=== PATIENT | male | born 1985 | race American Indian/Alaskan Native ===

== ENCOUNTER 2016-06-10 02:27 | Emergency (ER) | payer SELFPAY | END 2016-06-10 03:30 | disposition left against medical advice (07) | LOC: ED 02:27 | DX: R00.0 Tachycardia, unspecified (principal); Z53.21 Procedure and treatment not carried out due to patient leaving prior to being seen by health care provider ==

== ENCOUNTER 2016-06-16 04:13 | Emergency (ER) | payer SELFPAY ==
[2016-06-16 05:08] LABS: Basophils % (Auto) 0.6 % (0.0-1.8); Eosinophils % (Auto) 0.2 % (0.0-4.3); Hematocrit 52.7 % (35.5-45.6); Hemoglobin 17.7 gm/dl (11.8-15.2); Mean Corpuscular HGB Conc 34 % (32-34); Mean Corpuscular Hemoglobin 32 pg (28-32); Mean Corpuscular Volume 94 fl (84-94); Platelet Count 239 K/mm3 (140-440); Red Cell Distribution Width 16.1 % (13.2-15.2)
[2016-06-16 05:19] LABS: BUN/Creatinine Ratio 15.71; Blood Urea Nitrogen 11 mg/dL (9-20); Calcium 9.2 mg/dL (8.4-10.2); Carbon Dioxide 23 mmol/L (22-30); Chloride 89.8 mmol/L (98-107); Glucose 55 mg/dL (75-100); Potassium 4.2 mmol/L (3.6-5.0); Sodium 136 mmol/L (137-145)
[2016-06-16 05:35] LABS: Anion Gap 27 mmol/L
[2016-06-16 15:38] LABS: Urine Drugs of Abuse Note Disclamer
[2016-06-16] MEDS ORDERED: NACL 0.9% 1000 ML IV ONE (16:08)
--- NOTE | 2016-06-16 16:14 | Emergency Department Report ---
HPI - General Chief Complaint: Arrhythmia/Palpitations Time Seen by Provider: 06/16/16 16:06 - HPI HPI: Chief complaint: Feeling funny after using cocaine HPI: Patient is a 30-year-old male with history of alcohol abuse who states he used cocaine for the first time last night he's been feeling funny ever since. Patient has a history of polycythemia and has been worked up by hematology without a diagnosis being made according to the patient. Patient also states he was told he had fatty liver and has cut back on his drinking but states he still drinks a sixpack of beer a day and sometimes more. Patient denies any chest pain or shortness of breath. Mode of arrival: private car Source: Patient Began: Prior to admission Duration: Continuous but has is some Context: Patient states he did cocaine last night and then again today Quality: Pain-free Severity: 0 out of 10 Improved with: Nothing Worsened with: Doing cocaine Associated signs and symptoms: No fever, cough, colds, nausea, vomiting or diarrhea. No chest or abdominal pain ED Past Medical Hx - Past Medical History Previous Medical History?: Yes - Social History Smoking Status: Current Every Day Smoker Substance Use Type: Alcohol, Cocaine, Marijuana - Medications Home Medications: Home Medications Medication Instructions Recorded Confirmed Last Taken Type Acetaminophen/Codeine [Tylenol #3] 1 tab PO Q6H PRN #16 tab 09/12/14 Unknown Rx Diazepam Tab [Valium] 5 mg PO Q8H PRN #21 tablet 09/12/14 Unknown Rx ED Review of Systems ROS: Stated complaint: POSS DETOX Other details as noted in HPI ROS Constitutional: No fever ENT: No uri symptoms Cardiovascular: No chest pain Respiratory: No sob or cough GI: No nausea vomiting or diarrhea : No dysuria frequency or urgency, Skin: No rash Neuro: No focal weakness or numbness Psych: Anxiety Fredis/lymph: No edema Physical Exam - Physical Exam Vital Signs: Vital Signs 06/16/16 04:22 Temperature 98.2 F Pulse Rate 109 H Respiratory 18 Rate Blood Pressure 126/87 O2 Sat by Pulse 98 Oximetry Physical Exam: GENERAL: The patient is a thin -[place] male in no acute distress HEENT: Normocephalic. Atraumatic. Extraocular motions are intact. Patient has moist mucous membranes. NECK: Supple. No meningitic signs are noted. There is no adenopathy noted. CHEST/LUNGS: Clear to auscultation. There is no respiratory distress noted. HEART/CARDIOVASCULAR: Regular. There is no tachycardia. There is no gallop rub or murmur. ABDOMEN: Abdomen is soft, nontender. Patient has normal bowel sounds. There is no abdominal distention. SKIN: There is no rash. There is no edema. There is no diaphoresis. NEURO: The patient is awake, alert, and oriented. The patient is cooperative. The patient has no focal neurologic deficits. The patient has normal speech. MUSCULOSKELETAL: There is no tenderness or deformity. There is no limitation range of motion. There is no evidence of acute injury. ED Course Vital Signs 06/16/16 04:22 Temperature 98.2 F Pulse Rate 109 H Respiratory 18 Rate Blood Pressure 126/87 O2 Sat by Pulse 98 Oximetry - Reevaluation(s) Reevaluation #1: 06/16/16 16:20 Patient will be given a liter of normal saline and 100 mg of thiamine. ED Medical Decision Making - Lab Data Result diagrams: 06/16/16 04:48 06/16/16 04:48 Laboratory Tests 06/16/16 06/16/16 06/16/16 04:48 07:43 10:26 Troponin T < 0.010 < 0.010 < 0.010 - EKG Data -: EKG Interpreted by Me EKG shows normal: sinus rhythm Rate: normal - EKG Data When compared to previous EKG there are: previous EKG unavailable Interpretation: [facility] Critical care attestation.: If time is entered above; I have spent that time in minutes in the direct care of this critically ill patient, excluding procedure time. ED Disposition Clinical Impression: Cocaine abuse Disposition: DISCHARGED TO HOME OR SELFCARE Is pt being admited?: No Does the pt Need Aspirin: No Condition: Stable Instructions: Cocaine Abuse (ED), At-Risk Alcohol Use (ED) Referrals: PRIMARY CARE, [Primary Care Provider] - 3-5 Days [facility] [Outside] - 3-5 Days Time of Disposition: 16:21
[2016-06-16] MEDS ORDERED: VITAMIN B-1 IV ONE (16:20)
[2016-06-16] MEDS ORDERED: VITAMIN B-1 100 MG in NACL 0.9% 50 ML IV ONE (17:30)
[2016-06-16 17:47] VITALS: BP 118/79
== END 2016-06-16 17:47 | disposition home or self-care (01) ==
LOC: ED 04:13
DX: F14.10 Cocaine abuse, uncomplicated (principal); F17.200 Nicotine dependence, unspecified, uncomplicated; F12.10 Cannabis abuse, uncomplicated
CPT/HCPCS: 36415; 80048; 80307; 84484; 85025; 93005; 93010; 96361; 96374; 99283; J3411; J7030

== ENCOUNTER 2017-03-17 12:00 | Emergency (ER) | payer SELFPAY ==
[2017-03-17 12:18] VITALS: BP 127/86
--- NOTE | 2017-03-17 13:06 | Emergency Department Report ---
Chief Complaint: Hypoglycemia Stated Complaint: low blood sugar Time Seen by Provider: 03/17/17 13:05 - HPI History of Present Illness: Patient brought to the emergency room this morning in by EMS and he said he called EMS and they took him to the hospital because he said he took moderately at 2 AM and he started feeling anxious and nauseous. Patient states that he feels sleepy. Denies any suicide or homicide ideation. Denies any vomiting. Denies any diarrhea. Denies any pain at present. Denies any headache. - ROS Review of Systems: All systems are negative unless stated in HPI above - Exam Vital Signs: Vital Signs 03/17/17 12:13 Temperature 98.6 F Pulse Rate 83 Respiratory 18 Rate Blood Pressure 127/86 O2 Sat by Pulse 100 Oximetry Physical Exam: Gen.: This is a 31-year-old male well-nourished well-developed. He has nontoxic in appearance Cardiovascular: S1, S2. Regular rate and rhythm. Lungs: Clear Auscultated bilaterally, no rhonchi wheezes or rales. Mini-Neurological: Patient is sleepy but easily arousable. Oriented 3. GCS of 15. No facial droop. And normal speech. MSE screening note: Focused history and physical exam performed. Due to findings the following was ordered: ED Medical Decision Making - Medical Decision Making MDM: Patient screened by provider in triage area. Appropriate protocol initiated and patient to be seen in main ED by Dr. HERZOG Disposition for MSE Condition: Stable
[2017-03-17 14:25] LABS: Basophils % (Auto) 0.8 % (0.0-1.8); Eosinophils % (Auto) 1.5 % (0.0-4.3); Hematocrit 42.2 % (35.5-45.6); Hemoglobin 13.9 gm/dl (11.8-15.2); Mean Corpuscular HGB Conc 33 % (32-34); Mean Corpuscular Hemoglobin 30 pg (28-32); Mean Corpuscular Volume 91 fl (84-94); Platelet Count 248 K/mm3 (140-440); Red Blood Count 4.65 M/mm3 (3.65-5.03); Red Cell Distribution Width 13.7 % (13.2-15.2); White Blood Count 7.5 K/mm3 (4.5-11.0)
[2017-03-17 14:42] LABS: Anion Gap 20 mmol/L; BUN/Creatinine Ratio 12; Blood Urea Nitrogen 6 mg/dL (9-20); Calcium 8.7 mg/dL (8.4-10.2); Carbon Dioxide 23 mmol/L (22-30); Chloride 98.6 mmol/L (98-107); Glucose 78 mg/dL (75-100); Sodium 138 mmol/L (137-145)
[2017-03-17] MEDS ORDERED: NACL 0.9% 1000 ML 1,000 ML IV ONE (16:12)
[2017-03-17 16:32] LABS: Urine Drugs of Abuse Note Disclamer
[2017-03-17 16:39] LABS: Bilirubin,Urine NEG (Negative); Blood,Urine SM (Negative); Ketones,Urine TR mg/dL (Negative); Leukocyte Esterase,Urine TR (Negative); Mucus,Urine FEW /HPF; Nitrite,Urine NEG (Negative); Protein,Urine <15 mg/dL mg/dL (Negative); Urobilinogen,Urine < 2.0 mg/dL (<2.0)
--- NOTE | 2017-03-17 17:00 | Emergency Department Report ---
ED Anxiety HPI - General Chief Complaint: Hypoglycemia Stated Complaint: low blood sugar Time Seen by Provider: 03/17/17 13:05 Source: patient Mode of arrival: Ambulatory - History of Present Illness Initial Comments: This is 31-year-old male nontoxic, well nourished in appearance, no acute signs of distress presents to the ED complaining of feeling anxious and nauseated since 6 AM. Patient stated at 2 AM he did Francesca and then when he got home around 6 AM while he was trying to sleep he developed anxiety. Patient currently in the ED denies any symptoms and said his symptoms have subsided. Patient denies chest pain, or shortness of breath, nausea, vomiting, fever, chills, headache neck, blurry vision. Patient denies any allergies or past history. MD Complaint: anxiety -: This morning Place: home Previous History of Same: No Severity: mild Quality: improving Provoking factors: other (Francesca drug) Improves With: other (resolved) Worsens With: nothing Associated symptoms: denies other symptoms. denies: chest pain, shortness of breath, palpitations, diaphoresis, confusion, cough, fever/chills, headaches, anorexia, malaise, nausea/vomiting, rash, seizure, syncope, weakness - Related Data Home Medications: Previous Rx's Medication Instructions Recorded Last Taken Type Acetaminophen/Codeine [Tylenol #3] 1 tab PO Q6H PRN #16 tab 09/12/14 Unknown Rx Diazepam Tab [Valium] 5 mg PO Q8H PRN #21 tablet 09/12/14 Unknown Rx Allergies/Adverse Reactions: Allergies Allergy/AdvReac Type Severity Reaction Status Date / Time No Known Allergies Allergy Verified 09/12/14 02:01 ED Review of Systems ROS: Stated complaint: low blood sugar Other details as noted in HPI Constitutional: denies: chills, fever Eyes: denies: eye pain, eye discharge, vision change ENT: denies: ear pain, throat pain Respiratory: denies: cough, shortness of breath, wheezing Cardiovascular: denies: chest pain, palpitations Endocrine: no symptoms reported Gastrointestinal: denies: abdominal pain, nausea, diarrhea Genitourinary: denies: urgency, dysuria Musculoskeletal: denies: back pain, joint swelling, arthralgia Skin: denies: rash, lesions Neurological: denies: headache, weakness, paresthesias Psychiatric: denies: anxiety, depression Hematological/Lymphatic: denies: easy bleeding, easy bruising ED Past Medical Hx - Past Medical History Hx Psychiatric Treatment: Yes (bipolar,schizophrenia) - Social History Smoking Status: Current Every Day Smoker Substance Use Type: Alcohol, Marijuana - Medications Home Medications: Home Medications Medication Instructions Recorded Confirmed Last Taken Type Acetaminophen/Codeine [Tylenol #3] 1 tab PO Q6H PRN #16 tab 09/12/14 Unknown Rx Diazepam Tab [Valium] 5 mg PO Q8H PRN #21 tablet 09/12/14 Unknown Rx ED Physical Exam - General Limitations: No Limitations General appearance: alert, in no apparent distress - Head Head exam: Present: atraumatic, normocephalic, normal inspection - Eye Eye exam: Present: normal appearance, PERRL, EOMI. Absent: scleral icterus, conjunctival injection, nystagmus, periorbital swelling, periorbital tenderness Pupils: Present: normal accommodation - ENT ENT exam: Present: normal exam, normal orophraynx, mucous membranes moist, TM's normal bilaterally, normal external ear exam - Neck Neck exam: Present: normal inspection, full ROM. Absent: tenderness, meningismus, lymphadenopathy, thyromegaly - Respiratory Respiratory exam: Present: normal lung sounds bilaterally. Absent: respiratory distress, wheezes, rales, rhonchi, stridor, chest wall tenderness, accessory muscle use, decreased breath sounds, prolonged expiratory - Cardiovascular Cardiovascular Exam: Present: regular rate, normal rhythm, normal heart sounds. Absent: bradycardia, tachycardia, irregular rhythm, systolic murmur, diastolic murmur, rubs, gallop - GI/Abdominal GI/Abdominal exam: Present: soft, normal bowel sounds. Absent: distended, tenderness, guarding, rebound, rigid, diminished bowel sounds - Rectal Rectal exam: Present: deferred - Extremities Exam Extremities exam: Present: normal inspection, full ROM, normal capillary refill. Absent: tenderness, pedal edema, joint swelling, calf tenderness - Back Exam Back exam: Present: normal inspection, full ROM. Absent: tenderness, CVA tenderness (R), CVA tenderness (L), muscle spasm, paraspinal tenderness, vertebral tenderness, rash noted - Neurological Exam Neurological exam: Present: alert, oriented X3, CN II-XII intact, normal gait, reflexes normal - Psychiatric Psychiatric exam: Present: normal affect, normal mood - Skin Skin exam: Present: warm, dry, intact, normal color. Absent: rash ED Course Vital Signs 03/17/17 03/17/17 12:13 17:28 Temperature 98.6 F Pulse Rate 83 Respiratory 18 18 Rate Blood Pressure 127/86 O2 Sat by Pulse 100 99 Oximetry - Reevaluation(s) Reevaluation #1: 03/17/17 17:04 Patient is speaking in full sentences with no signs of distress noted. Reevaluation #2: 03/17/17 17:04 Patient currently stated symptoms are subsided after receiving normal saline 1 L. Reevaluation #3: 03/17/17 17:24 Blood sugar was 86 and dropped to 42. Patient received Cache juice and food. Will reassess BG. Reevaluation #4: 03/17/17 17:52 BG is 88. ED Medical Decision Making - Lab Data Result diagrams: 03/17/17 14:08 03/17/17 14:08 - Medical Decision Making 31-year-old that presents with history of anxiety which are resolved now. Patient received 1 L of normal saline. UA, CBC, BMP has been obtained and urine plasma with normal limits. Positive culture report is positive for cocaine. Patient was educated instructed that taking illegal drugs and side effects. Patient was instructed to follow-up with a primary care doctor in 3-5 days or if symptoms worsen and continue return to emergency room as soon as possible possible. Patient is hemodynamically stable with stable vital signs. Patient states he is feeling better. At time time of discharge, the patient does not seem toxic or ill in appearance. No acute signs of distress noted. Patient agrees to discharge treatment plan of care. No further questions noted by the patient. Critical care attestation.: If time is entered above; I have spent that time in minutes in the direct care of this critically ill patient, excluding procedure time. ED Disposition Clinical Impression: Anxiety Disposition: DC-01 TO HOME OR SELFCARE Is pt being admited?: No Does the pt Need Aspirin: No Condition: Stable Instructions: Cocaine Abuse (ED), Anxiety (ED) Additional Instructions: Follow-up with a primary care doctor in 3-5 days or if symptoms worsen and continue return to emergency room as soon as possible possible. Referrals: BRITTANY ZAPATA MD [Primary Care Provider] - 3-5 Days JULIET OLSON MD [Staff Physician] - 3-5 Days [facility] [Outside] - 3-[address] [facility] [Outside] - 3-5 Days Forms: Work/School Release Form(ED)
== END 2017-03-17 18:03 | disposition home or self-care (01) ==
LOC: ED 12:00
DX: F41.9 Anxiety disorder, unspecified (principal); R11.0 Nausea; F12.10 Cannabis abuse, uncomplicated; F17.200 Nicotine dependence, unspecified, uncomplicated
CPT/HCPCS: 36415; 80048; 80307; 81001; 82962; 85025; 96360; 99284; G0480; J7030; 80320

== ENCOUNTER 2017-08-09 13:15 | Emergency (ER) | payer SELFPAY ==
[2017-08-09] MEDS ORDERED: TORADOL ONE (15:04)
[2017-08-09] MEDS ORDERED: TORADOL IV ONE (15:08)
--- NOTE | 2017-08-09 16:16 | XRay Report ---
FINAL REPORT EXAM: XR TEMPOROMANDIBULAR JTS HISTORY: jaw pain TECHNIQUE: Four views of the TMJ joints were performed Comparison: None FINDINGS: Limited views of the temporomandibular joints demonstrate the mandibular condyles to be anteriorly located relative to the articular eminence. No fracture identified. IMPRESSION: Bilateral mandibular condyles are anteriorly located/translated anteriorly relative to the articular eminence compatible with subluxation or dislocation if they are not reducible and patient is not able to close his mouth.
[2017-08-09] MEDS ORDERED: ATIVAN ONE (16:27)
[2017-08-09] MEDS ORDERED: ZOFRAN ONE (16:27)
[2017-08-09] MEDS ORDERED: SUBLIMAZE ONE (16:28)
[2017-08-09] MEDS ORDERED: ATIVAN IV ONE (16:52)
[2017-08-09] MEDS ORDERED: SUBLIMAZE IV ONE (16:53)
[2017-08-09] MEDS ORDERED: ZOFRAN IV ONE (16:53)
[2017-08-09] MEDS ORDERED: AMIDATE IV ONE ×3 (17:03→17:33)
[2017-08-09] MEDS ORDERED: NACL 0.9% 1000 ML 1,000 ML ONE (17:04)
[2017-08-09] MEDS ORDERED: VERSED IV ONE (17:04)
[2017-08-09] MEDS ORDERED: KETALAR ONE (17:21)
--- NOTE | 2017-08-09 17:32 | Emergency Department Report ---
ED General Adult HPI - General Chief complaint: Pain General Stated complaint: JAW DISLOCATED Time Seen by Provider: 08/09/17 16:27 Source: patient Mode of arrival: Ambulatory Limitations: No Limitations - History of Present Illness Initial comments: Patient is 31 years old male with no significant past medical history except for jaw dislocation before. Patient presented with jaw dislocation that happened around 11:00 this morning while he was yawning. Patient denied any trauma or injury. Severity scale (0 -10): 10 - Related Data Previous Rx's Medication Instructions Recorded Last Taken Type Acetaminophen/Codeine [Tylenol #3] 1 tab PO Q6H PRN #16 tab 09/12/14 Unknown Rx Diazepam Tab [Valium] 5 mg PO Q8H PRN #21 tablet 09/12/14 Unknown Rx Naproxen [Naprosyn] 500 mg PO BID #14 tablet 08/09/17 Unknown Rx Allergies Allergy/AdvReac Type Severity Reaction Status Date / Time No Known Allergies Allergy Verified 09/12/14 02:01 ED Review of Systems ROS: Stated complaint: JAW DISLOCATED Other details as noted in HPI Comment: All other systems reviewed and negative ENT: denies: throat pain, dental pain Cardiovascular: denies: chest pain Gastrointestinal: denies: abdominal pain, nausea, diarrhea Neurological: denies: headache, weakness, numbness ED Past Medical Hx - Past Medical History Hx Psychiatric Treatment: Yes (bipolar,schizophrenia,paranoid) Additional medical history: dislocated jaw - Social History Smoking Status: Smoker, Current Status Unknown Substance Use Type: None - Medications Home Medications: Home Medications Medication Instructions Recorded Confirmed Last Taken Type Acetaminophen/Codeine [Tylenol #3] 1 tab PO Q6H PRN #16 tab 09/12/14 Unknown Rx Diazepam Tab [Valium] 5 mg PO Q8H PRN #21 tablet 09/12/14 Unknown Rx Naproxen [Naprosyn] 500 mg PO BID #14 tablet 08/09/17 Unknown Rx ED Physical Exam - General Limitations: No Limitations General appearance: alert, in no apparent distress - Head Head exam: Present: other (obvious jaw dislocation, patient unable to close his mouth.) - Eye Eye exam: Present: normal appearance - ENT ENT exam: Present: normal exam, normal orophraynx, mucous membranes moist - Respiratory Respiratory exam: Present: normal lung sounds bilaterally. Absent: respiratory distress, wheezes, rales, rhonchi, chest wall tenderness - Cardiovascular Cardiovascular Exam: Present: regular rate, normal rhythm, normal heart sounds - GI/Abdominal GI/Abdominal exam: Present: soft, normal bowel sounds. Absent: distended, tenderness, guarding, rebound, rigid - Extremities Exam Extremities exam: Present: normal inspection, full ROM - Back Exam Back exam: Present: normal inspection - Neurological Exam Neurological exam: Present: alert, oriented X3 - Skin Skin exam: Present: warm, intact, normal color ED Course Vital Signs 08/09/17 08/09/17 08/09/17 13:22 17:10 17:15 Temperature 98.3 F Temperature [ 97.8 F Pre-Procedure] Pulse Rate 82 Pulse Rate [ Intra-Procedure ] Pulse Rate [Pre 98 H 107 H -Procedure] Respiratory 18 Rate Respiratory Rate [Intra- Procedure] Respiratory 18 16 Rate [Pre- Procedure] Blood Pressure 134/87 Blood Pressure [Intra- Procedure] Blood Pressure [Left] Blood Pressure 122/81 135/90 [Pre-Procedure] O2 Sat by Pulse 98 Oximetry O2 Sat by Pulse Oximetry [ Intra-Procedure ] O2 Sat by Pulse 100 Oximetry [Pre- Procedure] 08/09/17 08/09/17 08/09/17 17:20 17:25 17:30 Temperature Temperature [ Pre-Procedure] Pulse Rate Pulse Rate [ 117 H 99 H Intra-Procedure ] Pulse Rate [Pre 103 H -Procedure] Respiratory Rate Respiratory 15 16 Rate [Intra- Procedure] Respiratory 17 Rate [Pre- Procedure] Blood Pressure Blood Pressure 135/90 118/81 [Intra- Procedure] Blood Pressure [Left] Blood Pressure 129/82 [Pre-Procedure] O2 Sat by Pulse Oximetry O2 Sat by Pulse 96 96 Oximetry [ Intra-Procedure ] O2 Sat by Pulse 95 Oximetry [Pre- Procedure] 08/09/17 08/09/17 08/09/17 17:35 18:44 19:24 Temperature 97.6 F Temperature [ Pre-Procedure] Pulse Rate 105 H Pulse Rate [ 100 H Intra-Procedure ] Pulse Rate [Pre -Procedure] Respiratory 16 Rate Respiratory 18 Rate [Intra- Procedure] Respiratory Rate [Pre- Procedure] Blood Pressure Blood Pressure 117/73 [Intra- Procedure] Blood Pressure 125/85 [Left] Blood Pressure [Pre-Procedure] O2 Sat by Pulse 100 99 Oximetry O2 Sat by Pulse 98 Oximetry [ Intra-Procedure ] O2 Sat by Pulse Oximetry [Pre- Procedure] - Reevaluation(s) Reevaluation #1: 08/09/17 19:48 Patient is alert and oriented 3 in no acute distress. - Orthopedic Joint Reduction Joint #1 Consent Obtained: emergent situation Time Out Performed: Yes Side: left Joint Reduction Location: other (jaw) Analgesia: moderate sedation Shoulder Technique Used (if applicable): other Post-Reduction Neuro Exam: intact Post-Reduction Vascular Exam: intact Post Reduction X-Ray Obtained: Yes Post Reduction X-Ray Results: reduced Patient Tolerated Procedure: well, no complications Critical care attestation.: If time is entered above; I have spent that time in minutes in the direct care of this critically ill patient, excluding procedure time. ED Disposition Clinical Impression: Temporomandibular joint dislocation Disposition: TO HOME OR SELFCARE Is pt being admited?: No Condition: Stable Instructions: Mandibular Dislocation (ED) Prescriptions: Naproxen [Naprosyn] 500 mg PO BID #14 tablet Referrals: PRIMARY CARE, [Primary Care Provider] - 3-5 Days Forms: Accompanied Note, Work/School Release Form(ED)
[2017-08-09] MEDS ORDERED: KETALAR IV ONE (17:33)
--- NOTE | 2017-08-09 18:55 | XRay Report ---
FINAL REPORT EXAM: XR TEMPOROMANDIBULAR JTS HISTORY: tempomandibular dislocation TECHNIQUE: AP and right lateral views of the mandible. The lateral view was obtained with the patient in open mouth position. PRIORS: None. FINDINGS: On the right lateral view, the mandibular condyle maintains its normal articulation with the mandibular fossa. No dislocation of the TMJ joint is seen on the right. The left temporomandibular joint is extremely difficult to evaluate on this right lateral film. There is no evidence of acute fracture. Dentition is unremarkable and the overlying soft tissues appear normal. IMPRESSION: No acute abnormality noted in the mandible or the right temporomandibular joint. No evidence for right-sided dislocation. The left temporomandibular joint is difficult to evaluate on this single right lateral view.
[2017-08-09 19:25] VITALS: BP 125/85
== END 2017-08-09 19:45 | disposition home or self-care (01) ==
LOC: ED 13:15
DX: S03.00XA Dislocation of jaw, unspecified side, initial encounter (principal); F31.9 Bipolar disorder, unspecified; F20.9 Schizophrenia, unspecified; F17.200 Nicotine dependence, unspecified, uncomplicated; X58.XXXA Exposure to other specified factors, initial encounter; Y93.89 Activity, other specified; Y92.89 Other specified places as the place of occurrence of the external cause; Y99.8 Other external cause status
CPT/HCPCS: 21480; 70330; 96374; 96375; 99283; J1885; J2060; J2250; J2405; J3010; J7030

== ENCOUNTER 2020-02-23 00:34 | Emergency (ER) | payer SELFPAY ==
[2020-02-23 01:21] VITALS: BP 125/76
--- NOTE | 2020-02-23 02:01 | XRay Report ---
MANDIBLE 4 VIEW INDICATION / CLINICAL INFORMATION: left jaw pain. COMPARISON: None available. FINDINGS: The bilateral mandibular condyles appear to be anteriorly dislocated relative to the articular eminen ce suggestive of anterior dislocation. Signer Name: Eddie Amaral MD Signed: 02/23/2020 1:57 AM Workstation Name: [id number]
== END 2020-02-23 07:26 | disposition left against medical advice (07) ==
LOC: ED 00:34
DX: R68.84 Jaw pain (principal); Z53.21 Procedure and treatment not carried out due to patient leaving prior to being seen by health care provider
CPT/HCPCS: 70110